=== PATIENT | female | born 1965 | race Caucasian/White ===

== ENCOUNTER 2017-09-05 08:46 | Emergency (ER) | payer OTHER ==
[~2017-09-05] VITALS: Ht 175.3 cm; Wt 70.8 kg
[~2017-09-05 08:46] MED LIST: FLEXERIL10 MG PO
[2017-09-05 08:53] VITALS: BP 129/84
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
[2017-09-05] MEDS ORDERED: COPAXONE40 MG/1 ML SC (09:42)
[2017-09-05] MEDS ORDERED: MONTELUKAST SOD10 M1 PO (09:43)
[2017-09-05] MEDS ORDERED: METOPROLOL SUCC25 M1 PO (09:43)
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
== END 2017-09-05 10:33 ==
LOC: ERH 08:46
DX: S05.92XA Unspecified injury of left eye and orbit, initial encounter (principal); M25.522 Pain in left elbow; Y04.0XXA Assault by unarmed brawl or fight, initial encounter; Y92.213 High school as the place of occurrence of the external cause; Y93.9 Activity, unspecified
CPT/HCPCS: 73080-LT